=== PATIENT | female | born 1960 | race Caucasian/White ===

== ENCOUNTER 2016-11-05 17:49 | Emergency (ER) | payer BC ==
--- NOTE | ~2016-11-05 | CR114 ---
[facility] A Service of [facility] RADIOLOGY TEXT RESULTS PATIENT: KYLE HARRIS LOCATION: SED : 58 UNIT #: [id number] AGE: [address]: Monalisa Eden APRN SEX: F ORDER DR: [id number] [address] [address] [id number] E MR#: [id number] Acc #: [id number] NAME: KYLE HARRIS : 1960 SEX: F STUDY DATE/TIME: 11/05/2016 17:34 UNIT: SED ROOM: STUDY DESCRIPTION: CR Finger 2 View 5Th Lt Attending Physician: Monalisa Eden A.P.R.N. Ordering Physician: Monalisa Eden A.P.R.N. Primary Care Physician: Amos Barboza III, M.D. MEDICAL IMAGING REPORT This report is preliminary unless electronic signature is present. EXAM Left fifth finger series. HISTORY Swelling. Slammed in door. PROCEDURE AP, lateral and oblique radiographs of the left fifth digit are presented. COMPARISON None. FINDINGS No traumatic fracture or malalignment. The joint spaces are intact with mild interphalangeal joint space narrowing. No soft tissue defect, subcutaneous air or radiodense foreign body. Mild soft tissue swelling of the fifth digit. The remaining visualized bony structures notable for an approximately 5 mm well-corticated calcification projecting distal to the ulnar styloid process and favored to be chronic soft tissue calcification or perhaps sequelae of remote ulnar styloid process fracture. This does not appear acute in nature. Dictated by... Fermin Agarwal M.D. THIS IS AN ELECTRONICALLY VERIFIED REPORT Fermin Agarwal M.D. at 11/15/2016 2:13 PM AUGUSTUSK/eric TD: 11/06/2016 12:59 JOB #: [id number] [facility] A Service [facility] RADIOLOGY TEXT RESULTS PATIENT: KYLE HARRIS LOCATION: SED : 58 UNIT #: [id number] AGE: [address]: Monalisa Eden APRN SEX: F ORDER DR: MEDICAL IMAGING REPORT
[~2016-11-05 17:49] MED LIST: ADVIL200 M2 PO; KETOPROFEN PO; NO MEDICATIONS; SKELAXIN PO
[2016-11-05] MEDS ORDERED: NO MEDICATIONS (17:56)
== END 2016-11-05 19:18 | disposition home or self-care (01) ==
LOC: SED 17:49
DX: S61.217A Laceration without foreign body of left little finger without damage to nail, initial encounter (principal); B19.20 Unspecified viral hepatitis C without hepatic coma; F17.210 Nicotine dependence, cigarettes, uncomplicated; Z88.0 Allergy status to penicillin; Z23 Encounter for immunization; W23.0XXA Caught, crushed, jammed, or pinched between moving objects, initial encounter
CPT/HCPCS: 29130; 73140; 90471; 90715; 99283

== ENCOUNTER 2017-02-09 18:01 | Emergency (ER) | payer BC ==
--- NOTE | ~2017-02-09 | CT2 ---
[facility] A Service of [facility] RADIOLOGY TEXT RESULTS PATIENT: KYLE HARRIS LOCATION: SED : 58 UNIT #: [id number] AGE: [address]: Crys Singh SEX: F ORDER DR: [id number] [address] [address] [id number] E MR#: [id number] Acc #: [id number] NAME: KYLE HARRIS : 1960 SEX: F STUDY DATE/TIME: 02/09/2017 19:13 UNIT: SED ROOM: STUDY DESCRIPTION: CT Abd and Pelv W Cont Attending Physician: Crys Singh Pa-C Ordering Physician: Jovan Omer M.D. Primary Care Physician: Amos Barboza III, M.D. MEDICAL IMAGING REPORT This report is preliminary unless electronic signature is present. EXAM CT abdomen and pelvis INDICATIONS Generalized abdominal pain and rectal bleeding for [address] of the abdomen and pelvis with 100 mL Isovue-370 IV contrast. Coronal and sagittal reconstructions were obtained. This CT exam was performed with one or more of the following radiation dose reduction techniques: Automatic exposure control, adjustment of mA and/or kV according to patient size, and iterative reconstruction. COMPARISON None available. FINDINGS There is a long segment of circumferential thickening of the colon, from the splenic flexure to the descending colon/sigmoid colon junction. This is indicative of a colitis. The bowel wall thickening measures up to 1.5 cm. There is some pericolonic inflammation, however no evidence of abscess or perforation. The appendix is normal. The solid abdominal organs enhance normally. The abdominal aorta is normal in caliber. PELVIS: There is a small volume of free fluid in the pelvis. There is abnormal configuration of the uterus, with the uterus measuring 8.8 x 5.6 x 5.5 cm. There is presumably a cervical fibroid accounting for the appearance, however this may warrant further evaluation. Consider a pelvic ultrasound as initial assessment. Patient may ultimately require a pelvic MRI. No enlarged pelvic or inguinal lymph nodes. Ovaries are within normal limits. [facility] A Service of [facility] RADIOLOGY TEXT RESULTS PATIENT: KYLE HARRIS LOCATION: SED : 58 UNIT #: [id number] AGE: [address]: Crys Singh SEX: F ORDER DR: No acute osseous abnormalities. IMPRESSION 1. Long-segment inflammatory change of the colon, from the splenic flexure to the descending colon/sigmoid colon junction. This is indicative of a colitis. No evidence of abscess or perforation. 2. Occasional diverticulosis. 3. Abnormal configuration of the uterus. This is most commonly due to a cervical fibroid, however, this probably warrants further evaluation with a pelvic ultrasound on a non-emergent bases. Patient may ultimately require a pelvic MRI for complete characterization. Dictated by... Kenji Arauz M.D. THIS IS AN ELECTRONICALLY VERIFIED REPORT Kenji Arauz M.D. at 02/10/2017 1:14 PM Brielle/mayank TD: 02/09/2017 21:04 JOB #: [id number] MEDICAL IMAGING REPORT Page 1 of 1
[2017-02-09 18:48] LABS: BASOPHIL# 0.1 X10e3 (0-0.3); BASOPHIL% 0.6 % (0-2.5); EOSINOPHIL# 0.2 X10e3 (0-0.7); EOSINOPHIL% 1.5 % (0.0-7.0); HEMATOCRIT 44.9 % (35.0-45.0); HEMOGLOBIN 14.9 gm/dL (12.0-16.0); LYMPHOCYTE# 2.7 X10e3 (1.0-3.5); LYMPHOCYTE% 20.8 % (17.0-45.0); MEAN CELL VOLUME 89.1 FL (83-96); MEAN CORPUSCULAR HEMOGLOBIN 29.6 PG (28-34); MEAN CORPUSCULAR HGB CONC 33.2 g/dL (30-36); MEAN PLATELET VOLUME 8.8 FL (6.5-11.5); MONOCYTE# 0.7 X10e3 (0-1.0); MONOCYTE% 5.2 % (3.0-12.0); NEUTROPHIL# 9.2 X10e3 (1.5-7.1); NEUTROPHIL% 71.9 % (40-75); PLATELET COUNT 175 X10e3 (140-420); RED BLOOD COUNT 5.04 X10e (3.90-5.30); RED CELL DISTRIBUTION WIDTH 13.9 % (11.0-15.5); WHITE BLOOD COUNT 12.8 X10e3 (4.0-10.5)
[2017-02-09 18:49] LABS: DIFF IND NO
[2017-02-09 19:01] LABS: ALBUMIN SERUM 4.1 g/dL (3.5-5.0); BILIRUBIN, DIRECT 0.1 mg/dL (0.0-0.2); BILIRUBIN,INDIRECT 0.4 mg/dL (0.0-0.9); BILIRUBIN,TOTAL 0.5 mg/dL (0.2-2.0); BUN/CREATININE RATIO 17.5; CALCIUM SERUM 8.8 mg/dL (8.4-10.2); CREATININE SERUM 0.8 mg/dL (0.6-1.4); GLOM FILT RATE Estimated 81.9 mL/min (>60); POTASSIUM 3.8 mmol/L (3.5-5.1); PROTEIN TOTAL SERUM 7.7 g/dL (6.0-8.3)
== END 2017-02-09 20:54 | disposition home or self-care (01) ==
LOC: SED 18:01
PROVIDERS: Physician Assistant
DX: K52.9 Noninfective gastroenteritis and colitis, unspecified (principal); Z86.19 Personal history of other infectious and parasitic diseases; J44.9 Chronic obstructive pulmonary disease, unspecified; Z98.51 Tubal ligation status; F17.210 Nicotine dependence, cigarettes, uncomplicated; Z88.0 Allergy status to penicillin; Z88.6 Allergy status to analgesic agent
CPT/HCPCS: 36415; 74177; 80048; 80076; 82150; 82270; 83690; 85025; 96361; 96374; 96375; 99284; J2270; J2405; Q9967